=== PATIENT | male | born 1965 | race African-American/Black ===

== ENCOUNTER → 2019-11-30 | Outpatient (CLI) | payer OTHER ==
[2019-11-30 07:59] LABS: CALCIUM 9.1 mg/dL (8.5-10.1); GFR 93.5; POTASSIUM 3.9 mmol/L (3.5-5.1); TOTAL BILIRUBIN 0.5 mg/dL (0.2-1.0)
== END | disposition home or self-care (01) ==
LOC: LAB 05:59
DX: E87.6 Hypokalemia (principal)
CPT/HCPCS: 36415; 80053